=== PATIENT | male | born 1980 | race Caucasian/White ===

== ENCOUNTER 2022-04-28 16:06 | Emergency (ER) | payer OTHER ==
[2022-04-28 16:17] VITALS: BP 138/92; PULSE 81; RESP 18; TEMP 98.2; BMI 30.9
[2022-04-28] MEDS ORDERED: AMOX TR/POT CLAV 875MG/125MG TABLETS (FP) PO ONE (19:13)
[2022-04-28] MEDS ORDERED: AMOX TR/POT CLAV 875MG/125MG TABLETS (FP) ONE (19:19)
[2022-04-28] MEDS ORDERED: BACITRACIN ZINC 15 GM TUBE TOPICAL OINTMENT ONE (19:38)
== END 2022-04-28 19:59 | disposition home or self-care (01) ==
LOC: JERFT 16:06 → JER 16:06 → JERFT 19:59
DX: S61.032A Puncture wound without foreign body of left thumb without damage to nail, initial encounter (principal); W53.11XA Bitten by rat, initial encounter
CPT/HCPCS: 99283-25

== ENCOUNTER 2022-05-10 17:34 | Emergency (ER) | payer OTHER ==
[2022-05-10 17:41] VITALS: BP 121/72; PULSE 75; RESP 16; TEMP 98.1; BMI 29.2
[2022-05-10] MEDS ORDERED: DIPHTH,PERTUSS(ACELL),TET 0.5 ML DISP.SYRIN IM ONE ×2 (18:53→18:59)
== END 2022-05-10 19:51 | disposition home or self-care (01) ==
LOC: JERFT 17:34
PROC: 3E0234Z Introduction of Serum, Toxoid and Vaccine into Muscle, Percutaneous Approach (ICD-10-PCS; principal; 2022-05-10)
DX: Z23 Encounter for immunization (principal)
CPT/HCPCS: 90715; 99283-25